=== PATIENT | female | born 1980 | race Caucasian/White ===

== ENCOUNTER 2021-11-24 08:58 | Inpatient (IN) | payer OTHER ==
[~2021-11-24] VITALS: Ht 170.2 cm; Wt 64.0 kg
[~2021-11-24 08:58] MED LIST: BENTYL 20MG TAB20 MG PO; CARAFATE1 GM PO; IBUPROFEN600 MG PO; NORCO 7.5-3251 EACH PO; PROTONIX40 MG PO; ZOFRAN4 MG PO
[2021-11-24 09:32] LABS: HEMOGLOBIN 17.1 gm/dl (12.3-15.3); RED BLOOD COUNT 4.91 M/UL (4.00-5.10); WHITE BLOOD COUNT 9.2 K/UL (4.5-11.0)
[2021-11-24 09:57] LABS: BUN/CREATININE RATIO 21 (0-10)
[2021-11-24] MEDS ORDERED: BENTYL 20MG TAB20 MG PO (16:39)
[2021-11-24] MEDS ORDERED: TRAMADOL HCL50 MG PO (16:40)
[2021-11-24] MEDS ORDERED: VITAMIN D21250 MCG PO (16:40)
[2021-11-24] MEDS ORDERED: IBU800 MG PO (16:40)
[2021-11-25 06:41] LABS: HEMOGLOBIN 16.4 gm/dl (12.3-15.3); RED BLOOD COUNT 4.82 M/UL (4.00-5.10)
[2021-11-25 07:24] LABS: BUN/CREATININE RATIO 15 (0-10)
[2021-11-26 09:21] LABS: WHITE BLOOD COUNT 8.6 K/UL (4.5-11.0)
[2021-11-26 09:39] LABS: HEMOGLOBIN 12.8 gm/dl (12.3-15.3); RED BLOOD COUNT 3.77 M/UL (4.00-5.10)
[2021-11-26 10:08] LABS: BUN/CREATININE RATIO 14 (0-10)
[2021-11-27 10:18] LABS: HEMOGLOBIN 11.8 gm/dl (12.3-15.3); RED BLOOD COUNT 3.52 M/UL (4.00-5.10); WHITE BLOOD COUNT 8.5 K/UL (4.5-11.0)
[2021-11-27 10:41] LABS: BUN/CREATININE RATIO 11 (0-10)
[2021-11-28 08:16] LABS: HEMOGLOBIN 11.1 gm/dl (12.3-15.3); RED BLOOD COUNT 3.21 M/UL (4.00-5.10)
[2021-11-28 09:06] LABS: BUN/CREATININE RATIO 5 (0-10)
[2021-12-01] MEDS ORDERED: PERCOCET 5-3251 EACH PO ×3 (19:48→20:43)
[2021-12-01] MEDS ORDERED: PERCOCET 5/325 T1 EA PO (20:02)
[2021-12-02] MEDS ORDERED: PERCOCET 5-3251 EACH PO (06:04)
[2021-12-02] MEDS ORDERED: PERCOCET 5/325 T1 EA PO (09:08)
== END 2021-12-02 10:42 | disposition home or self-care (01) | DRG 439 ==
LOC: ER1 08:58 → MED SURG 4 16:22 → CDU 16:22 → MED SURG 4 20:19
PROVIDERS: Family Medicine; ADMIT Surgery
DX: K85.11 Biliary acute pancreatitis with uninfected necrosis (principal); K56.7 Ileus, unspecified; K58.9 Irritable bowel syndrome, unspecified; F17.210 Nicotine dependence, cigarettes, uncomplicated; Z20.822 Contact with and (suspected) exposure to COVID-19; Z88.1 Allergy status to other antibiotic agents; Z88.0 Allergy status to penicillin; Z98.891 History of uterine scar from previous surgery
CPT/HCPCS: 36415; 74170; 76705; 80053; 80307; 81001; 82550; 82553; 83605; 83690; 83735; 84484; 84703; 85025; 85027; 93005; 99285; C9113; J1170; J1650; J2270; J2405; J7030; Q9967